=== PATIENT | male | born 1955 | race Caucasian/White ===

== ENCOUNTER 2016-06-22 11:44 | Emergency (ER) | payer BC ==
[~2016-06-22] VITALS: Ht 180.3 cm; Wt 85.9 kg
[2016-06-22] MEDS ORDERED: NITROGLYCERIN SUBLINGUAL 0.4 MG (NITROQUICK) TABLET SL ONE (12:08)
[2016-06-22] MEDS ORDERED: SODIUM CHLORIDE 250 ML IV PRN (12:10)
[2016-06-22] MEDS ORDERED: SODIUM CHLORIDE FLUSH 10 ML SYR IV PRN (12:10)
[2016-06-22] MEDS ORDERED: ASPIRIN 81 MG CHEW (CHILDREN'S ASA) PO ONE (12:10)
[2016-06-22] MEDS ORDERED: ONDANSETRON 2 MG/ML (Z0FRAN) 2 ML VIAL IV ONE (12:10)
[2016-06-22] MEDS ORDERED: morphine INJ 4 MG/ML 1 ML SYRINGE IV PRN (12:10)
[2016-06-22] MEDS: NITROGLYCERIN SUBLINGUAL 0.4 MG (NITROQUICK) TABLET SL PRN ×2 (12:14→12:36)
[2016-06-22 12:17] LABS: BASOPHILS % (AUTO) 0 % (0-2); EOSINOPHILS # (AUTO) 0.1 10^3uL; EOSINOPHILS % (AUTO) 1 % (0-4); LYMPHOCYTES # (AUTO) 1.8 X10^3; MEAN CORPUSCULAR HEMOGLOBIN 29.8 PG (26.0-34.0); MEAN CORPUSCULAR HGB CONC 33.5 g/dL (31.0-37.0); MEAN CORPUSCULAR VOLUME 89 FL (80-100); MEAN PLATELET VOLUME 9.4 FL (6.0-9.5); MONOCYTES # (AUTO) 0.5 X10^3; MONOCYTES % (AUTO) 7 % (3-11); NEUTROPHILS # (AUTO) 4.9 X10^3; NEUTROPHILS % (AUTO) 67 % (51-67); PLATELET COUNT 247 10^3uL (150-450); WHITE BLOOD COUNT 7.32 10^3uL (4.0-11.0)
[2016-06-22 12:24] LABS: ALBUMIN 4.6 g/dL (3.4-5.0); ALKALINE PHOSPHATASE 73 U/L (38-126); ANION GAP 14.3 MEQ/L (3-15); BUN/CREATININE RATIO 23 (10-20); CALCULATED IONIZED CALCIUM 3.8 mg/dL (3.8-4.6); CREATINE KINASE 114 U/L (55-170); TOTAL PROTEIN 7.9 g/dL (6.4-8.5)
[2016-06-22] MEDS: SODIUM CHLORIDE FLUSH 3 ML SYR IV PRN ×3 (12:36→13:44)
--- NOTE | 2016-06-22 12:47 | NUR ---
NOW RATES DISCOMFORT AT "2'. Blood pressure 100/71.
[2016-06-22] MEDS ORDERED: fentaNYL 100 MCG/2 ML VIAL IV ONE ×2 (13:00→13:35)
--- NOTE | 2016-06-22 13:23 | NUR ---
Rates Lt upper chest discomfort at "3". Denies nausea or SOA.
[2016-06-22 14:10] VITALS: BP 115/66
--- NOTE | 2016-06-22 14:12 | NUR ---
Now reports Lt upper chest discomfort rated at "1". Continues to deny nausea or SOA.
== END 2016-06-22 14:26 | disposition short-term general hospital (02) ==
LOC: ED 11:46
DX: R07.2 Precordial pain (principal)
CPT/HCPCS: 36415; 71010; 80053; 82550; 82553; 84484; 85025; 85610; 85730; 93005; 96374; 96375; 99285; J2405; J3010; 93010

== ENCOUNTER 2016-09-07 06:54 | Day surgery (SDC) | payer BC ==
[~2016-09-07] VITALS: Ht 180.3 cm; Wt 87.0 kg
[~2016-09-07 06:54] MED LIST: ASPI325T4 PO; ATOR20TA PO; IBUP1CAP11 PO; IBUP200C PO; LACTATED RINGERS 1,000 ML IV SCH; MNTL10T PO; NAPR220C16 PO; SODIUM CHLORIDE FLUSH 3 ML SYR IV PRN
--- OUTSIDE RECORDS SUMMARY | 2016-09-07 06:58 | XMS REPORT | Continuity of Care Document ---
Author Author [facility] Address Unknown Phone Unavailable Care Team Providers Care Mobile Manager Name Role Phone JUAN ADAMES MD PCP [phone] Insurance Providers Payer Name Policy Number Subscriber Name Relationship [facility] [id number] Rishi Spivey 18 Self / Same As Patient Advance Directives Directive Response Recorded Date/Time Advanced Directives No 06/22/16 11:55am Chief Complaint and Reason for Visit Chief Complaint Cardiac Complaint Reason for Visit Chest pain Problems Active Problems Medical Problem Onset Date Status Chest pain Unknown Acute Medications Current Home Medications Medication Dose Units Route Directions Days/Qty Instructions Start Date Montelukast Sodium (Singulair) 10 Mg 2 Tab ORAL As Needed 06/22/16 Naproxen Sodium 220 Mg 220 Mg ORAL Before Meals 06/22/16 Ibuprofen 200 Mg 2-3 Tab ORAL As Needed 06/22/16 Ibuprofen/Diphenhydramine Hcl 1 Each 1 Each ORAL As Needed 06/22/16 Aspirin 325 Mg 325 Mg ORAL As Needed 06/22/16 Social History Query Response Start Date Stop Date Smoking Status Never smoker Hospital Discharge Instructions No hospital discharge instructions. Plan of Care Discharge Date 06/22/16 2:26pm Disposition 02 XFER SHT-TRM HOSP - ACUTE Condition at Discharge Transfer Prescriptions See Medication Section Referrals JUAN ADAMES MD - Additional Instructions/Education Transfer to higher level of care at [facility]. Some of your test results may not be complete prior to your leaving the Emergency Department. The Emergency Department is not authorized to give test results over the phone. Please contact the doctor's office listed in this packet of information for your final results. Follow up with your primary care physician or return to the Emergency Department for worsening or worrisome symptoms. * Emergency Department phone number: [phone], x [phone]* MEDICAL RECORD If you need copies of your X-rays, call [phone]. If you need copies of your medical record, including lab results, a signed authorization for release of records will be required. A telephone call for release of Health Information is not allowed. BILLING Billing can sometimes be confusing and frustrating. To help avoid confusion in the future, please take a moment to acquaint yourself with the billing parties for services. SERVICE BILLING [facility] [employer] Emergency [facility] Phys[facility] X[facility] Patients will receive bills for services from the appropriate provider. If you have any questions about your [facility] bill, our staff will be happy to assist you. Please call [phone], and ask for the billing department. THANK YOU for choosing [facility] as your emergency care provider! Care Plan and Goals ~~Discharge Care Plan~~ Problem: Chest, epigastric or chest wall pain Goal: Decreased pain Instructions: Transfer to [facility] for further evaluation. Functional Status No functional status results. Allergies, Adverse Reactions, Alerts No known allergies. Immunizations No immunization records. Vital Signs Acute Vital Signs Vital Response Date/Time Temperature (Fahrenheit) 97.6 06/22/2016 11:55am Pulse 67 bpm 06/22/2016 2:10pm Respirations 12 06/22/2016 1:59pm Height 5 ft 11 in Weight 189 lb Body Mass Index 26.0 kg/m^2 Results Laboratory Results Test Name Result Units Flags Reference Collection Date/Time Result Date/ Time Comments White Blood Count 7.32 10^3uL 4.0-11.0 06/22/2016 11:55am 06/22/2016 12 :33pm Red Blood Count 5.31 10^6uL 4.50-5.50 06/22/2016 11:55am 06/22/2016 12: 33pm Hemoglobin 15.8 g/dL 13.5-17.0 06/22/2016 11:55am 06/22/2016 12:33pm Hematocrit 47.20 % 39.00-50.00 06/22/2016 11:55am 06/22/2016 12:33pm Mean Corpuscular Volume 89 FL 80-100 06/22/2016 11:55am 06/22/2016 12: 33pm Mean Corpuscular Hemoglobin 29.8 PG 26.0-34.0 06/22/2016 11:55am 2016 12:33pm Mean Corpuscular Hemoglobin Concent 33.5 g/dL 31.0-37.0 06/22/2016 11: 55am 06/22/2016 12:33pm Red Cell Distribution Width 14.0 % 11.8-15.6 06/22/2016 11:55am 2016 12:33pm Platelet Count 247 10^3uL 150-450 06/22/2016 11:55am 06/22/2016 12: 33pm Mean Platelet Volume 9.4 FL 6.0-9.5 06/22/2016 11:55am 06/22/2016 12: 33pm Neutrophils (%) (Auto) 67 % 51-67 06/22/2016 11:55am 06/22/2016 12: 33pm Lymphocytes (%) (Auto) 24 % 20-46 06/22/2016 11:55am 06/22/2016 12: 33pm Monocytes (%) (Auto) 7 % 3-11 06/22/2016 11:55am 06/22/2016 12:33pm Eosinophils (%) (Auto) 1 % 0-4 06/22/2016 11:55am 06/22/2016 12:33pm Basophils (%) (Auto) 0 % 0-2 06/22/2016 11:55am 06/22/2016 12:33pm Neutrophils # (Auto) 4.9 X10^3 06/22/2016 11:55am 06/22/2016 12:33pm Lymphocytes # (Auto) 1.8 X10^3 06/22/2016 11:55am 06/22/2016 12:33pm Monocytes # (Auto) 0.5 X10^3 06/22/2016 11:55am 06/22/2016 12:33pm Eosinophils # (Auto) 0.1 10^3uL 06/22/2016 11:55am 06/22/2016 12: 33pm Basophils # (Auto) 0.0 10^3uL 06/22/2016 11:55am 06/22/2016 12:33pm Prothrombin Time 10.3 SEC 10.0-12.5 06/22/2016 11:55am 06/22/2016 12: 25pm Prothromb Time International Ratio 0.9 0.8-1.4 06/22/2016 11:55am 12:25pm Activated Partial Thromboplast Time 29.9 SEC 26.3-36.8 06/22/2016 11: 55am 06/22/2016 12:25pm Sodium Level 142 mmol/L 135-150 06/22/2016 11:55am 06/22/2016 12:26pm Potassium Level 4.1 mmol/L 3.5-5.1 06/22/2016 11:55am 06/22/2016 12: 26pm Chloride Level 106 mmol/L 98-108 06/22/2016 11:55am 06/22/2016 12:26pm Carbon Dioxide Level 25 mmol/L 22-29 06/22/2016 11:55am 06/22/2016 12: 26pm Anion Gap 14.3 MEQ/L 3-15 06/22/2016 11:55am 06/22/2016 12:26pm Blood Urea Nitrogen 20 mg/dL H 7-18 06/22/2016 11:55am 06/22/2016 12: 26pm Creatinine 0.86 mg/dL 0.8-1.5 06/22/2016 11:55am 06/22/2016 12:26pm BUN/Creatinine Ratio 23 H 10-20 06/22/2016 11:55am 06/22/2016 12:26pm Estimat Glomerular Filtration Rate 110.1 06/22/2016 11:552016 12:26pm Estimated GFR (Non- 91.0 06/22/2016 11:55am 2016 12:26pm Glucose Level 98 mg/dL 70-110 06/22/2016 11:5506/22/2016 12:26pm Calculated Osmolality 276 mosm/L L 280-300 06/22/2016 11:552016 12:26pm Calcium Level 9.1 mg/dL 8.8-10.8 06/22/2016 11:5506/22/2016 12:26pm Calcium/Ionized Calcium Ratio 3.8 mg/dL 3.8-4.6 06/22/2016 11:55 12:26pm Total Bilirubin 0.8 mg/dL 0.1-1.0 06/22/2016 11:5506/22/2016 12: 26pm Alkaline Phosphatase 73 U/L 38-126 06/22/2016 11:5506/22/2016 12: 26pm Aspartate Amino Transf (AST/SGOT) 28 U/L 15-37 06/22/2016 11:5506/22 12:26pm Alanine Aminotransferase (ALT/SGPT) 44 U/L 30-65 06/22/2016 11:55 12:26pm Total Creatine Kinase 114 U/L 55-170 06/22/2016 11:5506/22/2016 12: 26pm Creatine Kinase MB 1.3 ng/mL 0.0-6.0 06/22/2016 11:55am 06/22/2016 12: 36pm Troponin I < 0.012 ng/mL 0.010-0.080 06/22/2016 11:5506/22/2016 12: 36pm Total Protein 7.9 g/dL 6.4-8.5 06/22/2016 11:55am 06/22/2016 12:26pm Albumin 4.6 g/dL 3.4-5.0 06/22/2016 11:5506/22/2016 12:26pm Albumin/Globulin Ratio 1.393 1.1-1.8 06/22/2016 11:55am 06/22/2016 12 :26pm Procedures No known history of procedures. Encounters Encounter Location Arrival/Admit Date Discharge/Depart Date Attending Provider Departed Emergency Room [facility] 06/22/16 11:46am 06/22/16 2:26pm VIC HERNÁNDEZ MD Recent Diagnosis
[2016-09-07 07:03] VITALS: BP 119/89
[2016-09-07] MEDS ORDERED: ALFENTANIL 500 MCG/ML (ALFENTA) 5 ML AMP IV ONE (07:11)
[2016-09-07] MEDS ORDERED: PROPOFOL 20 ML IV ONE (07:11)
[2016-09-07] MEDS ORDERED: MIDAZOLAM 2 MG/2 ML (VERSED) VIAL ONE (07:11)
[2016-09-07] MEDS ORDERED: ASPI-860 PO (07:12)
[2016-09-07] MEDS ORDERED: MULT-517 PO (07:12)
[2016-09-07 08:38] VITALS: BP 120/65
[2016-09-07 09:05] VITALS: BP 125/76
--- NOTE | 2016-09-07 09:34 | OPERATIVE REPORT ---
DATE OF OPERATION: 09/07/2016 PRE-OPERATIVE DIAGNOSIS: Screening colonoscopy POST-OPERATIVE DIAGNOSIS: Mild sigmoid diverticulosis OPERATIVE PROCEDURE: Total colonoscopy SURGEON: Sixto Judge MD ANESTHESIA: Monitored anesthesia care FINDINGS: 1. The bowel prep was excellent. 2. No neoplasia, angiodysplasia, or inflammation was seen. 3. There were a few scattered diverticula seen in the sigmoid colon. INDICATION: The patient is a 60-year-old referred by Dr. Michael for colonoscopy screening. His family history is negative for colorectal cancer. DESCRIPTION OF PROCEDURE: The patient was informed of the risks and benefits and agreed to proceed. He was placed in the left lateral decubitus position and administered IV sedation. When properly sedated a rectal exam was performed, which was normal. The lighted endoscope was passed into the rectum and advanced along the colon to the cecum. The ileocecal valve and the appendiceal orifice were easily seen. The scope was slowly brought back through the ascending, transverse, descending, and sigmoid colon. No polyps or neoplasia were seen. A few diverticula were noted distally. The rectum appeared normal on regular view and retroflexion. The scope was removed completing the procedure. The patient tolerated the procedure without complications. I recommend a repeat screening colonoscopy in 10 years.
== END 2016-09-07 09:15 | disposition home or self-care (01) ==
LOC: ASC 06:54
PROVIDERS: ATTEND Surgery
DX: Z12.11 Encounter for screening for malignant neoplasm of colon (principal); K57.30 Diverticulosis of large intestine without perforation or abscess without bleeding; F41.9 Anxiety disorder, unspecified; E78.5 Hyperlipidemia, unspecified; Z79.82 Long term (current) use of aspirin; Z79.899 Other long term (current) drug therapy
CPT/HCPCS: 45378; J2250; J7120

== ENCOUNTER → 2016-10-16 | Outpatient (CLI) | payer BC ==
[~2016-10-16] MED LIST changes: +ASPI-860 PO; -LACTATED RINGERS 1,000 ML IV SCH; +MULT-517 PO; -SODIUM CHLORIDE FLUSH 3 ML SYR IV PRN
[2016-10-16 09:31] LABS: ALBUMIN 4.1 g/dL (3.4-5.0); CALCULATED IONIZED CALCIUM 3.9 mg/dL (3.8-4.6); TOTAL PROTEIN 7.3 g/dL (6.4-8.5)
== END ==
LOC: LAB 08:09
PROVIDERS: ATTEND Family Medicine
DX: R03.0 Elevated blood-pressure reading, without diagnosis of hypertension (principal); E78.4 Other hyperlipidemia
CPT/HCPCS: 36415; 80053; 80061; 84403